=== PATIENT | female | born 1990 ===

== ENCOUNTER 2017-07-23 13:30 | Inpatient (IN) | payer OTHER ==
[~2017-07-23] VITALS: Ht 152.4 cm; Wt 2.7 kg
[2017-08-09] MEDS ORDERED: PRENATAL 19 TA1 EAC1 PO (08:49)
[2017-08-11] MEDS ORDERED: PREPLUS CA-FE1 EACH PO (08:54)
[2017-08-11] MEDS ORDERED: NAPR500T14 PO (08:54)
== END 2017-08-11 11:51 | DRG 766 ==
LOC: OB/GYN 08-09 09:30 → LDR 08-09 09:30 → OB/GYN 08-09 18:24
PROVIDERS: Specialist
PROC: 4A1HXCZ Monitoring of Products of Conception, Cardiac Rate, External Approach (ICD-10-PCS; 2017-08-09)
PROC: 10D00Z1 Extraction of Products of Conception, Low, Open Approach (ICD-10-PCS; principal; 2017-08-09 22:15)
DX: O34.211 Maternal care for low transverse scar from previous cesarean delivery (principal); Z37.0 Single live birth; Z3A.39 39 weeks gestation of pregnancy

== ENCOUNTER → 2022-07-09 | Outpatient (CLI) | payer OTHER ==
[~2022-07-09] MED LIST: NAPR500T14 PO; PRENATAL 19 TA1 EAC1 PO; PREPLUS CA-FE1 EACH PO
== END | disposition home or self-care (01) ==
LOC: PRENATAL 10:50
PROVIDERS: ATTEND Obstetrics & Gynecology Maternal & Fetal Medicine
DX: O36.80X0 Pregnancy with inconclusive fetal viability, not applicable or unspecified (principal); Z14.8 Genetic carrier of other disease; O34.219 Maternal care for unspecified type scar from previous cesarean delivery; O99.210 Obesity complicating pregnancy, unspecified trimester; Z3A.13 13 weeks gestation of pregnancy

== ENCOUNTER 2022-07-18 19:18 | Emergency (ER) | payer OTHER ==
[~2022-07-18] VITALS: Ht 149.9 cm; Wt 93.4 kg
[2022-07-18] MEDS ORDERED: ZOFRAN8 MG PO (19:43)
== END 2022-07-19 02:23 | disposition home or self-care (01) ==
LOC: ER 19:18
DX: O46.92 Antepartum hemorrhage, unspecified, second trimester (principal); Z3A.14 14 weeks gestation of pregnancy

== ENCOUNTER 2022-08-31 10:50 | Outpatient (CLI) | payer OTHER ==
[~2022-08-31 10:50] MED LIST changes: +ZOFRAN8 MG PO
== END 2022-08-31 12:57 | disposition home or self-care (01) ==
LOC: PRENATAL 10:50
PROVIDERS: ATTEND Obstetrics & Gynecology Maternal & Fetal Medicine
DX: O35.3XX0 Maternal care for (suspected) damage to fetus from viral disease in mother, not applicable or unspecified (principal); O34.219 Maternal care for unspecified type scar from previous cesarean delivery; O35.9XX0 Maternal care for (suspected) fetal abnormality and damage, unspecified, not applicable or unspecified; Z3A.21 21 weeks gestation of pregnancy

== ENCOUNTER 2022-11-18 12:41 | Outpatient (CLI) | payer OTHER | END 2022-11-18 13:45 | disposition home or self-care (01) | LOC: PRENATAL 12:41 | PROVIDERS: ATTEND Obstetrics & Gynecology Maternal & Fetal Medicine | DX: O36.80X0 Pregnancy with inconclusive fetal viability, not applicable or unspecified (principal); O34.219 Maternal care for unspecified type scar from previous cesarean delivery; Z3A.12 12 weeks gestation of pregnancy ==

== ENCOUNTER 2022-12-24 08:04 | Inpatient (IN) | payer OTHER ==
[~2022-12-24] VITALS: Ht 152.4 cm; Wt 2.7 kg
== END 2022-12-28 15:23 | disposition home or self-care (01) | DRG 785 ==
LOC: OB/GYN 08:04 → LDR 08:04 → O/R 13:54 → OB/GYN 14:39
PROVIDERS: ADMIT Obstetrics & Gynecology; ATTEND Obstetrics & Gynecology
PROC: 0UB70ZZ Excision of Bilateral Fallopian Tubes, Open Approach (ICD-10-PCS; 2022-12-24)
PROC: 4A1HXCZ Monitoring of Products of Conception, Cardiac Rate, External Approach (ICD-10-PCS; 2022-12-24)
PROC: 10D00Z1 Extraction of Products of Conception, Low, Open Approach (ICD-10-PCS; principal; 2022-12-24 11:15)
DX: O34.211 Maternal care for low transverse scar from previous cesarean delivery (principal); Z30.2 Encounter for sterilization; Z3A.37 37 weeks gestation of pregnancy; Z37.0 Single live birth; Z20.822 Contact with and (suspected) exposure to COVID-19